=== PATIENT | female | born 1990 | race Caucasian/White ===

== ENCOUNTER 2016-09-04 09:16 | Emergency (ER) | payer MEDICAID ==
[~2016-09-04] VITALS: Ht 157.5 cm; Wt 90.8 kg
[~2016-09-04 09:16] MED LIST: ASPI-860 PO; NO ROUTINE MEDS
[2016-09-04 09:21] VITALS: TEMP 98.2; Ht 157.5 cm; Wt 90.8 kg
--- OUTSIDE RECORDS SUMMARY | 2016-09-04 09:21 | XMS REPORT | Continuity of Care Document ---
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 today - Offered ulipristal Rx (more effective in obese, coverage out to 5 days from last unprotected intercourse). Pt declines. Prefers to "wait and see what happens". - Counseled on need to abtain frtom intercourse or use barrier protection with intercourse for 2 weeks prior to Nexplanon placement RTC 2 weeks for UCG, possible Nexplanon placement d/w Dr. Yoli Baker MD PGY-4 _x_ I reviewed the records with the resident and agree and directed the plan of care at the time of the visit (Levels 1 to 3). __ I certify that I personally performed or was present and supervised all procedures. History: Examination: Assessment/Plan: Here for nexplanon placement, but timing not appropriate; offered options- will return after menses 10/17/2015 [facility] Patient Viewable Results Eos 0.10 10^3/cmm 0.00 - 0.70 [facility] Patient Viewable Results Creatinine, Urine Random 37.7 mg/dL 07/19/2013 [facility] Patient Viewable Results UA Ketones Negative (07/19/2013 03:00:00) Negative 07/19/2013 [facility] Patient Viewable Results ABORH TYPE A POS 07/19/2013 [facility] Patient Viewable Results Glucose, 1 Hr 105 mg/dL 2012 NA 1Interpretive Data: Interpretation available on consultation with clinical pathologist. [facility] Vital Signs Vital Sign Value Date Comments Source Temperature Oral 98.3 [degF] 10/31/2015 [facility] Heart Rate 55 bpm 10/31/2015 [facility] Cuff Size Adult Large Cuff
</br>(10/31/15 1:14 PM) 10/31/2015 [facility] Systolic BP 106 mmHg 2015 [facility] Diastolic BP 59 mmHg 2015 [facility] BP Site Right Arm
</br>(10/31/15 1:14 PM) 10/31/2015 [facility] BP Site Right Arm
</br>(10/17/15 2:50 PM) 10/17/2015 [facility] Cuff Size Adult Regular Cuff
</br>(10/17/15 2:50 PM ) 10/17/2015 [facility] Heart Rate 60 bpm 10/17/2015 [facility] Temperature Oral 98.7 [degF] 10/17/2015 [facility] Systolic BP 123 mmHg 2015 [facility] Diastolic BP 80 mmHg 2015 [facility] Resp. Rate 18 BRMIN 2015 [facility] Oxygen Therapy Room air
</br>(07/21/2013 08:03:00 ) <sup> </sup> 07/21/2013 [facility] Diastolic BP 71 mmHg 2013 [facility] BP Site Left Arm
</br>(07/21/2013 08:03:00) <sup> </sup> 07/21/2013 [facility] Cuff Size Adult Long Cuff
</br>(07/21/2013 08:03: 00) <sup> </sup> 07/21/2013 [facility] Heart Rate 92 bpm 07/21/2013 [facility] Temperature Oral 98.3 [degF] 07/21/2013 [facility] Oxygen Saturation 97 % 2013 [facility] Resp. Rate 18 BRMIN 2013 [facility] Systolic BP 107 mmHg 2013 [facility] Oxygen Therapy Room air
</br>(07/21/2013 08:00:00 ) <sup> </sup> 07/21/2013 [facility] Mean Arterial Pressure 80 mmHg 07/21/2013 [facility] BP Site Right Arm
</br>(07/21/2013 03:15:00) <sup > </sup> 07/21/2013 [facility] Diastolic BP 66 mmHg 2013 [facility] Heart Rate 107 bpm 2013 [facility] Resp. Rate 18 BRMIN 2013 [facility] Systolic BP 107 mmHg 2013 [facility] Temperature Oral 97.8 [degF] 07/21/2013 [facility] Diastolic BP 80 mmHg 2013 [facility] BP Site Right Arm
</br>(07/21/2013 00:00:00) <sup > </sup> 07/21/2013 [facility] Mean Arterial Pressure 93 mmHg 07/21/2013 [facility] Temperature Oral 98.1 [degF] 07/21/2013 [facility] Heart Rate 105 bpm 2013 [facility] Resp. Rate 18 BRMIN 2013 [facility] Systolic BP 119 mmHg 2013 [facility] Mean Arterial Pressure 79 mmHg 07/21/2013 [facility] Oxygen Saturation 96 % 2013 [facility] Oxygen Saturation 96 % 2013 [facility] Oxygen Therapy Room air
</br>(07/20/2013 15:30:00 ) <sup> </sup> 07/20/2013 [facility] Cuff Size Adult Long Cuff
</br>(07/19/2013 12:05: 00) <sup> </sup> 07/19/2013 [facility] Cuff Size Adult Long Cuff
</br>(07/19/2013 08:04: 00) <sup> </sup> 07/19/2013 [facility] Systolic BP 118 mmHg 2013 [facility] Diastolic BP 75 mmHg 2013 [facility] Resp. Rate 18 BRMIN 2013 [facility] BP Site Right Arm
</br>(07/10/2013 12:48:00) <sup > </sup> 07/10/2013 [facility] Cuff Size Adult Large Cuff
</br>(07/10/2013 12:48: 00) <sup> </sup> 07/10/2013 [facility] Heart Rate 92 bpm 07/10/2013 [facility] Diastolic BP 71 mmHg 2013 [facility] Heart Rate 88 bpm 07/03/2013 [facility] Resp. Rate 18 BRMIN 2013 [facility] Systolic BP 117 mmHg 2013 [facility] Heart Rate 88 bpm 07/03/2013 [facility] Resp. Rate 18 BRMIN 2013 [facility] Systolic BP 107 mmHg 2013 [facility] Cuff Size Adult Large Cuff
</br>(07/03/2013 13:19: 00) <sup> </sup> 07/03/2013 [facility] Diastolic BP 71 mmHg 2013 [facility] BP Site Right Arm
</br>(07/03/2013 13:19:00) <sup > </sup> 07/03/2013 [facility] Resp. Rate 20 BRMIN 2013 [facility] Systolic BP 103 mmHg 2013 [facility] Heart Rate 83 bpm 06/26/2013 [facility] Diastolic BP 68 mmHg 2013 [facility] Systolic BP 103 mmHg 2013 [facility] Diastolic BP 68 mmHg 2013 [facility] Cuff Size Adult Regular Cuff
</br>(06/26/2013 14: 11:00) <sup> </sup> 06/26/2013 [facility] BP Site Right Arm
</br>(06/26/2013 14:11:00) <sup > </sup> 06/26/2013 [facility] Resp. Rate 20 BRMIN 2013 [facility] Heart Rate 83 bpm 06/26/2013 [facility] Diastolic BP 78 mmHg 2013 [facility] Resp. Rate 20 BRMIN 2013 [facility] Heart Rate 86 bpm 06/12/2013 [facility] Systolic BP 120 mmHg 2013 [facility] Diastolic BP 78 mmHg 2013 [facility] Cuff Size Adult Large Cuff
</br>(06/12/2013 16:04: 00) <sup> </sup> 06/12/2013 [facility] BP Site Right Arm
</br>(06/12/2013 16:04:00) <sup > </sup> 06/12/2013 [facility] Systolic BP 120 mmHg 2013 [facility] Resp. Rate 20 BRMIN 2013 [facility] Heart Rate 86 bpm 06/12/2013 [facility] Cuff Size Adult Regular Cuff
</br>(05/25/2013 14: 39:00) <sup> </sup> 05/25/2013 [facility] BP Site Left Arm
</br>(05/25/2013 14:39:00) <sup> </sup> 05/25/2013 [facility] Diastolic BP 66 mmHg 2013 [facility] Systolic BP 113 mmHg 2013 [facility] Resp. Rate 16 BRMIN 2013 [facility] Heart Rate 72 bpm 05/25/2013 [facility] Temperature Oral 98.2 [degF] 05/25/2013 [facility] Cuff Size Adult Large Cuff
</br>(04/28/2013 09:30: 00) <sup> </sup> 04/28/2013 [facility] BP Site Right Arm
</br>(04/28/2013 09:30:00) <sup > </sup> 04/28/2013 [facility] Systolic BP 119 mmHg 2012 [facility] Diastolic BP 83 mmHg 2012 [facility] Heart Rate 83 bpm 04/28/2013 [facility] Resp. Rate 18 BRMIN 2012 [facility] Diastolic BP 73 mmHg 2012 [facility] BP Site Right Arm
</br>(03/17/2013 11:13:00) <sup > </sup> 03/17/2013 [facility] Cuff Size Adult Large Cuff
</br>(03/17/2013 11:13: 00) <sup> </sup> 03/17/2013 [facility] Systolic BP 119 mmHg 2012 [facility] Heart Rate 87 bpm 03/17/2013 [facility] Resp. Rate 18 BRMIN 2012 [facility] Encounters Location Location Details Encounter Type Encounter Number Reason For Visit Attending Provider ADM Date DC Date Status Source [facility] [id number] Alma Kent 201510/18/2015 [facility] [id number] Kelly Bean 10/31/2015 11/01/2015 [facility] [id number] Grover Sim 12/17/2015 12/18/2015 [facility] [id number] Grover Sim 01/28/2016 01/29/2016 [facility] [id number] Grover Sim 02/18/2016 02/19/2016 [facility] Procedures Procedure Code Date Perfomer Comments Source No data available for this section [facility] Plan of Care Social History Assessment and Plan Date Assessment and Plan Source Author:Grover Sim Title:Psychiatric Note * Date:01/28/16 Impression and Plan Course: Worsening. Person Centered Clinical Analysis: Personal Strengths: Physically healthy, Able to verbalize needs. Current Community Agencies/Resources: Food stamps. Course: Worsening. [facility] Author:Avril Perry Title:Primary Products Inspectors Clinic Note Date:10/31/15 Patient: SAMMI VAUGHAN Age: 25 years Sex: Female : 89 Associated Diagnoses: None Author: Avril Perry eyelet maker Clinic Note History of Present Illness Pt is a 25yo presents for Nexplanon placement. She was previously seen in clinic on 10/16 desiring placement however had been recently sexually active without contraception. Since that time she has not had unprotected intercourse and continues to desire Nexplanon placement. Review of Systems Constitutional: No fever, No chills. Respiratory: No shortness of air. Cardiovascular: No chest pain. Gastrointestinal: No nausea, No vomiting, No abdominal pain. Genitourinary: No dysuria. Gynecologic: As per HPI. Musculoskeletal: No back pain. Integumentary: No rash. Neurologic: Alert and oriented X4. Psychiatric: No anxiety, No depression. Health Status Allergies: Allergic Reactions (Selected) No Known Allergies Current medications: (Selected) Prescriptions Prescribed Albuterol HFA 90 mcg/inh inhalation aerosol: 2 puff, Inhalation, Q4H, 1 INH Zoloft 50 mg oral tablet: 50 mg, 1 tab, PO, Daily, 30 tab Histories PMH: Obesity (BMI 37), bipolar/depression, PTSD POBHx: . c/s x1 2013 for intolerance to labor, weight 2915g PGynHx: Menstrual hx as per HPI. Pap 01/2013 NSIL. Denies h/o STIs. No contraception. PSxHx: c/s x1 SHx: FHx: Noncontributory Physical Examination VS/Measurements Vitals Signs (last 24 hrs) Last Charted Minimum Maximum Temp 98.3 (OCT 30 13:14) 98.3 (OCT 30 13:14) 98.3 (OCT 30 13:14) SBP 106 (OCT 30 13:14) 106 (OCT 30 13:14) 106 (OCT 30 13:14) DBP L 59 (OCT 30 13:14) L 59 (OCT 30 13:14) L 59 (OCT 30 13:14) Cognition and Speech: Oriented. Psychiatric: Cooperative, Appropriate mood & affect. Respiratory: Lungs are clear to auscultation. Cardiovascular: Normal rate, Regular rhythm. Gastrointestinal: Soft, Non-tender, Non-distended. Genitourinary: Deferred. Integumentary: Warm, Dry. Neurologic: Alert, Oriented. Urine HCG: negative Brief Description of Procedure: Risks/benefits/alternatives discussed including but not limited to pain, bruising, scar, expulsion of device, abnormal bleeding, and . Pt verbalized understanding and agreed to proceed.Consents signed. The patient was placed in the supine position with non-dominant arm flexed at the elbow andexternally rotated. Time out was performed. The insertion site was marked ~ 4cm above the elbow crease at the inner side of the upper arm, between the triceps and biceps muscle. The insertion site was then prepped with alcohol and ~ 1ml of lidocaine was inserted along the intended site of insertion. The presence of the Nexplanon was then verified inside the trochar with the needle cap in place and the applicator then tapped at the base until the implant disappeared back into the trochar. The need cap was then removed and the trochar inserted at a 20 degree angle to clements the skin the lowered to the horizontal plane and inserted to its full length while tenting up the skin. The applicator seal was then broken and rotated 90 degrees and the applicator and trochar removed. The insertion site was then palpated and the Nexplanon felt in place. Patient also was instructed to palpate the Nexplanon. The patient tolerated the procedure well. Dr. Kelly Bean MD was present and available for the entire procedure. Lot #: [id number] A/P: 25yo desiring Nexplanon 1. Nexplanon Placement - HCG negative as above - R/B/A of Nexplanon placement were reviewed with patient as above and Nexplanon placed in L upper inner arm without complication. - Patient instructed to keep pressure dressing on for at least 24hrs after which she may shower. May remove steri-strips in 2-3 days. - Patient instructed to take IBP for any pain or inflammation. RTC in 01/2016 for WWE or sooner if any increased pain, bleeding, erythema, swelling or discharge at insertion site. Discussed with MD Avril Ferrer DO, PGY1 __xx I certify that I personally performed or was present and supervised all procedures. Addendum by Kelly Bean on November 04, 2015 16:22 [facility] Author:Natasha Baker Title:Product Safety Coordinator Clinic Note * Date:10/17/15 Impression and Plan 25yo desiring Nexplanon - Nexplanon not placed today as pt has recently been having frequent unprotected intercourse. Can not prove she is not even with neg UCG today - Offered ulipristal Rx (more effective in obese, coverage out to 5 days from last unprotected intercourse). Pt declines. Prefers to "wait and see what happens". - Counseled on need to abtain frtom intercourse or use barrier protection with intercourse for 2 weeks prior to Nexplanon placement RTC 2 weeks for UCG, possible Nexplanon placement d/w Dr. Yoli Baker MD PGY-4 [facility] Author:Karen Castaneda Title:Ambulatory Patient Education Date:10/17/15 [facility]. [address] [address] Visit Information/Informacion de Visita Name/Nombre: SAMMI VAUGHAN Date of /Fecha de Nacimiento: 1990 12:00 AM Visit Date/Fecha de Visita: 10/17/2015 2:22 PM Physicians/Medicos Clinic Provider/Proveedor de Clinica: Resident Provider: Natasha Baker Attending Provider: Alma Kent This is the list of current medications in your medical record. It may include medications from visits to other areas of the hospital and medications you told us were prescribed by other doctors. If you have questions about any medications that were not prescribed from this clinic, please contact the doctor who prescribed them. Your Medications/Nancy Medicamentos Here is a list of your medications/Aqu est urszula lista de nancy medicinas. Medication/Strength Dose Route Frequency Indications/Special Instructions/ Comments ulipristal (ulipristal 30 mg oral tablet) 30 mg By Mouth ONCE acetaminophen-oxycodone (Percocet-5/325 325 mg-5 mg oral tablet) 1 tab By Mouth Every 4 Hours as needed for for pain multivitamin (multivitamin, Multivitamins oral tablet ) 1 tab By Mouth daily ibuprofen (ibuprofen 800 mg oral tablet) 800 mg By Mouth Every 8 hours as needed for as needed for pain ferrous sulfate (ferrous sulfate 325 mg oral tablet) 1 tab By Mouth daily docusate (Colace sodium 100 mg oral capsule) 100 mg By Mouth twice per day as needed for for constipation with plenty of water sertraline (Zoloft 50 mg oral tablet) 50 mg By Mouth daily albuterol (Albuterol HFA 90 mcg/inh inhalation aerosol) 2 puff Inhalation Every 4 Hours If you haven't been contacted for an appointment within two weeks, please call [phone] for [facility] or for [facility]. Additional Patient Information: Height: 5 ft 2 in Weight: 206 lb 13 oz Blood Pressure: 123/80 mmHg Future Orders Placed Today/Ordenes de Doctor Patient Follow-up Information/Informacion de seguimiento del paciente Your Upcoming Appointments/Nancy proximas citas Please bring all home medications to every visit with us at [facility]. Your safety and education around medications is our goal. (Prescription , non prescription and herbal supplements) Date Time Location Appointment Type Provider 10/31/2015 12:50 pm OB Clinic INFORMATION SYSTEMS AUDIT MANAGER Return Perry, Avril SMITH (R) Patient Instructions/Instrucciones para el Paciente All smokers are encouraged to stop smoking. If you would like help, talk to your doctor or call The [place] Tobacco Quitline at 5-062-WXGXNOW (7-206-244- 0659). If you have thoughts about committing suicide or otherwise hurting yourself, please call [phone] or call Crisis Line at . Take Charge of Your Health with [employer] Sign up today for [employer] for access to your health records 14/12. [employer] allows you to: Request an appointment Check your lab results Communicate with your providers and care team See provider notes from your visit View immunization records View current medication Sign up Today! Ask your healthcare provider or a [facility] associate for help, or email [email or web address]. [email or web address] Family History Value Date Source Advance Directives Order Name Results Value Date Source
--- OUTSIDE RECORDS SUMMARY | 2016-09-04 09:26 | XMS REPORT | Continuity of Care Document ---
Author Author [facility] Organization [facility] Address Unknown Phone Unavailable Support Name Relationship Address Phone SEPTEMBER, SANJU Lott DO Caregiver [address] [place] [address] Unavailable NOAH REYNOSO Next Of Kin Unknown [phone] Insurance Providers Guarantor Raquel Killian Address [address] [place] [address] Email DENIED/NO TO PORTAL Payer Medicaid [place] Policy Number [id number] Subscriber's Name Raquel Killian Relationship 18 Self Effective Date 16 Expiration Date 16 Advance Directives Directive Response Recorded Date/Time Advanced Directives Type None 05/06/16 1:06pm Chief Complaint and Reason for Visit Chief Complaint Skin Rash/Abscess Reason for Visit Aphthous ulcer Problems Active Problems Medical Problem Onset Date Status Aphthous ulcer Unknown Acute Hand contusion Unknown Acute Hand contusion Unknown Acute Migraine Unknown Acute Medications Current Home Medications Medication Dose Units Route Directions Days Qty Instructions Start Date Aspirin/Acetaminophen/Caffeine (Headache Relief Caplet) 1 Each Tablet 2 Tab Oral Every 4 Hours as needed for Pain 05/06/16 No Routine Meds 06/05/15 Past Home Medications Medication Directions Ordered Status [place] , 10/19/10 Discontinued Quetiapine Fumarate (Seroquel) 100 Mg Tablet, 100 Mg Oral Bedtime 01/29/11 Discontinued Seroquel , 10/19/10 Discontinued Social History Social History Problem Response Recorded Date/Time Onset Date Status Hx Substance Use No 05/06/2016 1:47pm Not Applicable Not Applicable Hx Alcohol Use No 05/06/2016 1:47pm Not Applicable Not Applicable Tobacco Usage smoke 06/05/2015 8:28pm Not Applicable Not Applicable Query Response Start Date Stop Date Smoking Status Current every day smoker Hospital Discharge Instructions No hospital discharge instructions. Plan of Care Discharge Date 05/06/16 1:42pm Disposition 01 DISCHARGED HOME, SELF-CARE Condition at Discharge Stable Instructions/Education Provided DI for Aphthous Ulcers (Canker Sores) Prescriptions See Medication Section Additional Instructions/Education You can try some Orajel solution or Maalox applied to the sore in your mouth to help with pain until they have healed. They may last up to 10 days. I do encourage you to follow up with the health department for STD testing if you have any concerns at all. Care Plan and Goals Physician Care Plan Problem:Ulcerations in mouth Goal: Follow up with primary care provider Instructions: Take medications and follow care plan as discussed/written Functional Status No functional status results. Allergies, Adverse Reactions, Alerts No known allergies. Immunizations Query Response on File Recorded Date/Time Hx Tetanus, Diptheria, Pertussis Y 04/24/2009 01/22/14 2:00pm Hx Tetanus, Diptheria, Pertussis Y 04/24/2009 01/22/14 2:00pm Vital Signs Acute Vital Signs Vital Response Date/Time Temperature (Fahrenheit) 98.3 deg F (96.8 - 99.1) 05/06/2016 1:42pm Temperature (Calculated Celsius) 36.58040 degrees C (36.0 - 37.3) 05/06/2016 1:42pm Pulse Rate (adult) 76 bpm (60 - 100) 05/06/2016 1:42pm Respiratory Rate 16 breaths/min (10 - 20) 05/06/2016 1:42pm O2 Sat by Pulse Oximetry 97 % (90 - 100) 05/06/2016 1:42pm Blood Pressure 128/75 mm Hg 05/06/2016 1:42pm Height (Feet) 5 feet 05/06/2016 1:06pm Height (Inches) 2.50 inches 05/06/2016 1:06pm Weight (Kilograms) 91.400 kg 05/06/2016 1:06pm Body Mass Index (BMI) 36.0 05/06/2016 1:06pm Results No known relevant diagnostic tests, laboratory data and/or discharge summary. Procedures No known history of procedures. Encounters Encounter Location Arrival/Admit Date Discharge/Depart Date Attending Provider Departed Emergency Room [facility] 05/06/16 12:58pm 05/06/16 1: 42pm SANJU ESTRADA DO Recent Diagnosis
--- OUTSIDE RECORDS SUMMARY | 2016-09-04 09:26 | XMS REPORT | Continuity of Care Document ---
Author Author [facility] Organization [facility] Address Unknown Phone Unavailable Care Team Providers Care Cube Cutter Name Role Phone DYLON SOUSA MD Primary Care Physician [phone] Insurance Providers Payer Name Policy Number Subscriber Name Relationship [facility] Community Plan [id number] Raquel Killian 19 Self Problems Medical Problems Problem Onset Date Status Hand contusion Unknown Active Medications Medication Dose Route Sig Days/Qty Instructions Order Date Discontinued Date Status [[place]] 10/19/10 01/29/11 Discontinued [Seroquel] 10/19/10 01/29/11 Discontinued Quetiapine Fumarate 100 Mg PO BEDTIME 01/29/11 10/07/11 Discontinued Naproxen 500 Mg PO TWICE A DAY 20 Qty 01/22/14 Active Lurasidone HCl 40 Mg PO DAILY 01/22/14 Active Cyproheptadine HCl 4 Mg PO BEDTIME 01/22/14 Active Social History Social History Problem Response Recorded Date/Time Smoking Status Current every day smoker 01/22/2014 2:00pm Hospital Discharge Instructions No hospital discharge instructions. Plan of Care No plan of care. Functional Status Query Response Date Recorded Physical Hygiene Self January 22, 2014 2:00pm Disabilities None January 22, 2014 2:00pm Devices Used None January 22, 2014 2:00pm Dressing Self January 22, 2014 2:00pm Ambulation Self January 22, 2014 2:00pm Diet Self January 22, 2014 2:00pm Mental Status Alert January 22, 2014 2:00pm Disabilities None January 22, 2014 2:00pm Devices Used None January 22, 2014 2:00pm Physical Hygiene Self January 22, 2014 2:00pm Dressing Self January 22, 2014 2:00pm Ambulation Self January 22, 2014 2:00pm Diet Self January 22, 2014 2:00pm Allergies, Adverse Reactions, Alerts Allergen Type Severity Reaction Status Last Updated No Known Allergies Active 01/02/12 Immunizations Name Given Type Hx Tetanus, Diptheria, Pertussis Y 04/24/2009 Historical Hx Tetanus, Diptheria, Pertussis Y 04/24/2009 Historical Vital Signs Acute Vital Signs Vital Response Date/Time Temperature (Fahrenheit) 96.5 deg F (96.8 - 99.1) Temperature (Calculated Celsius) 35.35909 degrees C (36.0 - 37.3) Pulse Rate (adult) 100 bpm (60 - 100) Respiratory Rate 18 breaths/min (10 - 20) O2 Sat by Pulse Oximetry 96 % (90 - 100) Blood Pressure 121/73 mm Hg Height 5 ft 2 in Weight 170 lb Body Mass Index 31.0 kg/m^2 Results Test Source Date Result Interp. Ref. Range Comments Alanine Aminotransferase (ALT/SGPT) October 19, 2010 7:02pm 10 U/L N 9-52 Albumin October 19, 2010 7:02pm 4.1 G/DL N 3.5-5.0 Albumin/Globulin Ratio October 19, 2010 7:02pm 1.4 RATIO N 1.1-2.2 Alkaline Phosphatase October 19, 2010 7:02pm 84 U/L N 38-126 Amylase Level October 19, 2010 7:02pm 78 U/L N 30-110 Anion Gap November 17, 2011 8:23pm 12 MEQ/L N 5-15 Aspartate Amino Transf (AST/SGOT) October 19, 2010 7:02pm 21 U/L N 14-36 BUN/Creatinine Ratio November 17, 2011 8:23pm 13 RATIO N 6-26 Basophils # (Auto) November 17, 2011 8:23pm 0.0 T/MM3 N 0-0.2 Basophils (%) (Auto) November 17, 2011 8:23pm 0.2 % N 0-2 Blood Urea Nitrogen November 17, 2011 8:23pm 9.0 MG/DL N 7-17 Calcium Level November 17, 2011 8:23pm 9.6 MG/DL N 8.4-10.2 Calculated Osmolality November 17, 2011 8:23pm 274 MOSM/KG N 261-280 Carbon Dioxide Level November 17, 2011 8:23pm 23 MEQ/L N 22-30 Chloride Level November 17, 2011 8:23pm 108 MEQ/L H 98-107 Conjugated Bilirubin October 19, 2010 7:02pm 0.00 MG/DL N 0.00-0.30 Creatinine November 17, 2011 8:23pm 0.7 MG/DL N 0.7-1.2 Eosinophils # (Auto) November 17, 2011 8:23pm 0.1 T/MM3 N 0-0.5 Eosinophils (%) (Auto) November 17, 2011 8:23pm 0.9 % N 0-4 Globulin October 19, 2010 7:02pm 2.9 G/DL N 2.4-3.6 Glucose Level November 17, 2011 8:23pm 105 MG/DL N 65-110 Hematocrit November 17, 2011 8:23pm 41.8 % N 36-46 Hemoglobin November 17, 2011 8:23pm 14.5 GM/DL N 12-16 Human Chorionic Gonadotropin, Qual November 17, 2011 8:23pm Negative - Lipase October 19, 2010 7:02pm 130 U/L N 23-300 [place] Level October 19, 2010 7:02pm < 0.2 MMOL/L L 0.6-1.2 Lymphocytes # (Auto) November 17, 2011 8:23pm 2.9 T/MM3 N 1-4.8 Lymphocytes (%) (Auto) November 17, 2011 8:23pm 35.3 % N 23-45 Mean Corpuscular Hemoglobin November 17, 2011 8:23pm 29.7 UUG N 26-34 Mean Corpuscular Hemoglobin Concent November 17, 2011 8:23pm 34.7 GM/DL N 31 -37 Mean Corpuscular Volume November 17, 2011 8:23pm 85.5 UM3 N 80-100 Mean Platelet Volume November 17, 2011 8:23pm 10.4 UM3 N 9.4-12.4 Monocytes # (Auto) November 17, 2011 8:23pm 0.4 T/MM3 N 0-0.8 Monocytes (%) (Auto) November 17, 2011 8:23pm 5.2 % N 0-9.0 Neutrophils # (Auto) November 17, 2011 8:23pm 4.8 T/MM3 N 1.8-7.7 Neutrophils (%) (Auto) November 17, 2011 8:23pm 58.3 % N 33-66 Platelet Count November 17, 2011 8:23pm 263 T/MM3 N 130-400 Potassium Level November 17, 2011 8:23pm 3.4 MEQ/L L 3.6-5 RDW Standard Deviation November 17, 2011 8:23pm 39.5 FL N 36.9-50.2 Red Blood Count November 17, 2011 8:23pm 4.89 M/MM3 N 4.00-5.20 Sodium Level November 17, 2011 8:23pm 143 MEQ/L N 134-144 Total Bilirubin October 19, 2010 7:02pm 0.30 MG/DL N 0.20-1.30 Total Protein October 19, 2010 7:02pm 7.0 G/DL N 6.3-8.2 Unconjugated Bilirubin October 19, 2010 7:02pm 0.10 MG/DL N 0.00-1.10 Urine Bacteria November 17, 2011 8:30pm 1+ H - Has specimen been collected/ obtained? Y Urine Bilirubin November 17, 2011 8:30pm Negative - Has specimen been collected/obtained? Y Urine Blood November 17, 2011 8:30pm Negative - Has specimen been collected/obtained? Y Urine Calcium Oxalate Crystals November 17, 2011 8:30pm Many - Has specimen been collected/obtained? Y Urine Collection Type November 17, 2011 8:30pm Voided - Has specimen been collected/obtained? Y Urine Color November 17, 2011 8:30pm Yellow - Has specimen been collected /obtained? Y Urine Culture Indicated November 17, 2011 8:30pm Cult not indicated - Has specimen been collected/obtained? Y Urine Glucose (UA) November 17, 2011 8:30pm Negative - Has specimen been collected/obtained? Y Urine Ketones November 17, 2011 8:30pm Negative - Has specimen been collected/obtained? Y Urine Leukocyte Esterase November 17, 2011 8:30pm Trace H - Has specimen been collected/obtained? Y Urine Mucus November 17, 2011 8:30pm Present - Has specimen been collected/obtained? Y Urine Nitrite November 17, 2011 8:30pm Negative - Has specimen been collected/obtained? Y Urine Test January 02, 2012 1:35pm Negative - Has specimen been collected/obtained? Y Urine Protein November 17, 2011 8:30pm Trace H - Has specimen been collected/obtained? Y Urine RBC November 17, 2011 8:30pm None seen /HPF - Has specimen been collected/obtained? Y Urine Specific [place] November 17, 2011 8:30pm 1.025 - Has specimen been collected/obtained? Y Urine Squamous Epithelial Cells November 17, 2011 8:30pm Many - Has specimen been collected/obtained? Y Urine Turbidity November 17, 2011 8:30pm Slt cldy - Has specimen been collected/obtained? Y Urine Urobilinogen November 17, 2011 8:30pm 1 EU/DL - Has specimen been collected/obtained? Y Urine WBC November 17, 2011 8:30pm 1-3 /HPF - Has specimen been collected /obtained? Y Urine pH November 17, 2011 8:30pm 6.0 - Has specimen been collected/ obtained? Y White Blood Count November 17, 2011 8:23pm 8.1 T/MM3 N 4.5-11.0 EKG February 27, 2009 9:25pm Complete - Glomerular Filtration Rate Calc November 17, 2011 8:23pm 107 - Immature Granulocyte # (Auto) November 17, 2011 8:23pm 0.01 T/MM3 N 0.00- 0.03 Immature Granulocyte % (Auto) November 17, 2011 8:23pm 0.1 % N 0.0-0.5 Urine Microscopic Not Indicated October 19, 2010 7:02pm Not indicated - Has specimen been collected/obtained? Y Gram Stain Breast-Left October 07, 2011 8:10pm Procedures No known history of procedures. Encounters Encounter Location Date/Time Departed Emergency [facility] 01/22/14 12:33pm Recent Diagnosis
--- OUTSIDE RECORDS SUMMARY | 2016-09-04 09:26 | XMS REPORT ---
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
--- OUTSIDE RECORDS SUMMARY | 2016-09-04 09:40 | XMS REPORT | Continuity of Care Document ---
Author Author Krysta Chaparro Address Unknown Phone Unavailable Care Team Providers Care Powerbuilder Name Role Phone [employer] Unavailable Unavailable Problems Problem Status Onset Date Classification Date Reported Comments Source Abdominal pain (finding) Active 02/09/2013 Problem 2015 [facility] Abdominal pain, unspecified site Active 02/09/2013 Problem 08/25/2013 [facility] Abdominal pain NOS Active Problem 06/13/2013 [facility] Patient currently (finding) Resolved 12/07/2012 Problem 02/23/2016 [facility] Active 12/07/2012 Problem 06/13/2013 [facility] Headache (finding) Active Problem 02/23/2016 [facility] Mood disorder (disorder) Active Problem 02/23/2016 [facility] Obesity (disorder) Active Problem 02/23/2016 Added based on documentation of BMI=36.6. [facility] Overweight (finding) Active Problem 02/23/2016 Added based on documentation of BMI=29.8. [facility] Final: Encounter for surveillance of other contraceptives 11/05/2015 [facility] Final: Nicotine dependence, cigarettes, uncomplicated 11/05/2015 [facility] Final: Obesity, unspecified 11/05/2015 [facility] Final: Body mass index (BMI) 37.0-37.9, adult 2015 [facility] Final: Encounter for initial prescription of other contraceptives 10/22/2015 [facility] Headache Active Problem 08/25/2013 [facility] Obesity (disorder) Active Problem 08/25/2013 1Added based on documentation of BMI=36.6. [facility] Obesity, unspecified Active Problem 07/28/2013 1Added based on documentation of BMI=36.6. [facility] Obesity NOS Active Problem 06/13/2013 1Added based on documentation of BMI=36.6. [facility] Medications Medication Details Route Status Patient Instructions Ordering Provider Order Date Source Albuterol HFA 90 mcg/inh inhalation aerosol </br>2 puff, Inhalation, Q4H, # 1 INH, 0 Refill(s) Active [facility] amitriptyline 25 mg oral tablet </br>=25 mg, 1 tab, PO, QHS, # 14 tab, 0 Refill(s) Inactive [facility] Acetaminophen 325 MG / Oxycodone Hydrochloride 5 MG Oral Tablet [Percocet 5/325 ] </br>1 tab, PO, Q4H, PRN for pain, # 40 tab, 0 Refill(s) Active [facility] multivitamin, Multivitamins oral tablet </br>1 tab, PO, Daily, # 30 tab, 11 Refill(s) Active [facility] ibuprofen 800 mg oral tablet </br>=800 mg, 1 tab, PO, Q8H, PRN as needed for pain, # 40 tab, 0 Refill(s) Active [facility] ferrous sulfate 325 mg oral tablet </br>1 tab, PO, Daily, # 30 tab, 11 Refill(s) Active [facility] Docusate Sodium 100 MG Oral Capsule [Colace] </br>=100 mg, 1 cap, PO, BID, PRN for constipation, with plenty of water, # 60 cap, 6 Refill(s) [facility] haloperidol 2 mg oral tablet </br>=2 mg, 1 tab, PO, QHS, # 30 tab, 2 Refill(s) Inactive [facility] topiramate 50 MG Oral Tablet [Topamax] </br>=50 mg, 1 tab, PO, BID, # 60 tab, 2 Refill(s) Inactive [facility] Sertraline 50 MG Oral Tablet [Zoloft] </br>=50 mg, 1 tab, PO, Daily, # 30 tab, 2 Refill(s), Pharmacy [facility] [facility] TDaP 0.5 mL, injection, VACCONCE, IM, Start date 04/28 10:57:00 Inactive [facility] influenza virus vaccine quadrivalent 0.5 mL, injection , VACCONCE, IM, Start date 04/28/13 10:46:00 Inactive [facility] Unisom 25 mg oral tablet 25 mg 1 tab, PO, QHS, PRN for sleep, # 32 tab, 0 Refill(s) PO Active [facility] Duet DHA Multivitamins oral kit 1 tab, PO, Daily, # 30 tab, 3 Refill(s), Pharmacy: [facility] [address] [facility] Vistaril pamoate 50 mg oral capsule =50 mg, 1 cap, PO , QHS, PRN Insomnia, Or up to four times per day for anxiety, may cause drowsiness, # 30 cap, 1 Refill(s), Pharmacy [facility]
</br>Or up to four times per day for anxiety, may cause drowsiness PO [facility] Zoloft 50 mg oral tablet =50 mg, 1 tab, PO, Daily, # 30 tab, 2 Refill(s), Pharmacy [facility] [address] [facility] Esgic 325 mg-50 mg-40 mg oral capsule 1 cap, PO, Q4H, PRN for headache, # 60 cap, 0 Refill(s) PO [facility] Percocet-5/325 325 mg-5 mg oral tablet 1 tab, PO, Q4H , PRN for pain, # 40 tab, 0 Refill(s) Active [facility] Colace sodium 100 mg oral capsule =100 mg, 1 cap, PO, BID, PRN for constipation, with plenty of water, # 60 cap, 6 Refill(s)
</br> with plenty of water [facility] Allergies, Adverse Reactions, Alerts Immunizations Immunization Date Given Site Status Last Updated Comments Source influenza virus vaccine 04/28/2013 Right Deltoid Influenza [facility] Influenza 04/28/2013 completed [facility] Tdap 04/28/2013 Right Deltoid Tdap [facility] Results Order Name Results Value Reference Range [...] / Confirmed Mood disorder / SNOMED CT 20761052 / Confirmed Obesity NOS / ICD-9-CM 278.00 / Confirmed Added based on documentation of BMI=36.6. Overweight / ICD-9-CM 278.02 / Confirmed Added based on documentation of BMI=29.8. Resolved: / SNOMED CT 716286226 Canceled: Alteration in nutrition / SNOMED CT 523324298 Problem added automatically by system based on [...] Dr. Billings. Titus Dolan M.D., PGY4 02/18/2016 [facility] Psychiatric OP Progress Note Psychiatric OP [...] assessment. the patient was seen at the [facility], between 1415 and 1500. on jan Chief [...] same time it seems very cledra that [facility] decliens most attempts to help her. [...] / Confirmed Mood disorder / SNOMED CT 18929359 / Confirmed Obesity NOS / ICD-9-CM 278.00 [...] defined date range Review / Management diagnosis L[place] i. Disruptive mood dysregulation disorder dissociative disorder [...] session which will take place tomorrow. 01/28/2016 [facility] Point Of Care NIST Timer Used For POC HCG Yes (10/31/15 1:45 PM) 2015 [facility] SWATCH PASTER Clinic Note SWATCH PASTER Clinic Note Patient: SAMMI VAUGHAN Age: 25 years Sex: Female : 89 Associated Diagnoses: None Author: Avril Perry border measurer and cutter Clinic Note History of Present Illness Pt [...] available for the entire procedure. Lot #: [id number] A/P: 25yo desiring Nexplanon 1. Nexplanon Placement [...] was present and supervised all procedures. 10/31/2015 [facility] Point Of Care NIST Timer Used For POC HCG Yes (10/17/15 3:02 PM) 2015 [facility] SWATCH PASTER Clinic Note SWATCH PASTER Clinic Note Patient: SAMMI VAUGHAN Age: 25 [...] offered options- will return after menses 10/17/2015 [facility] Patient Viewable Results Eos 0.10 10^3/cmm 0.00 - 0.70 [facility] Patient Viewable Results Creatinine, Urine Random 37.7 mg/dL 07/19/2013 [facility] Patient Viewable Results UA Ketones Negative (07/19/2013 03:00:00) Negative 07/19/2013 [facility] Patient Viewable Results ABORH TYPE A POS 07/19/2013 [facility] Patient Viewable Results Glucose, 1 Hr 105 mg/dL 2012 NA 1Interpretive Data: Interpretation available on consultation with clinical pathologist. [facility] Vital Signs Vital Sign Value Date Comments Source Temperature Oral 98.3 [degF] 10/31/2015 [facility] Heart Rate 55 bpm 10/31/2015 [facility] Cuff Size Adult Large Cuff
</br>(10/31/15 1:14 PM) 10/31/2015 [facility] Systolic BP 106 mmHg 2015 [facility] Diastolic BP 59 mmHg 2015 [facility] BP Site Right Arm
</br>(10/31/15 1:14 PM) 10/31/2015 [facility] BP Site Right Arm
</br>(10/17/15 2:50 PM) 10/17/2015 [facility] Cuff Size Adult Regular Cuff
</br>(10/17/15 2:50 PM ) 10/17/2015 [facility] Heart Rate 60 bpm 10/17/2015 [facility] Temperature Oral 98.7 [degF] 10/17/2015 [facility] Systolic BP 123 mmHg 2015 [facility] Diastolic BP 80 mmHg 2015 [facility] Resp. Rate 18 BRMIN 2015 [facility] Oxygen Therapy Room air
</br>(07/21/2013 08:03:00 ) <sup> </sup> 07/21/2013 [facility] Diastolic BP 71 mmHg 2013 [facility] BP Site Left Arm
</br>(07/21/2013 08:03:00) <sup> </sup> 07/21/2013 [facility] Cuff Size Adult Long Cuff
</br>(07/21/2013 08:03: 00) <sup> </sup> 07/21/2013 [facility] Heart Rate 92 bpm 07/21/2013 [facility] Temperature Oral 98.3 [degF] 07/21/2013 [facility] Oxygen Saturation 97 % 2013 [facility] Resp. Rate 18 BRMIN 2013 [facility] Systolic BP 107 mmHg 2013 [facility] Oxygen Therapy Room air
</br>(07/21/2013 08:00:00 ) <sup> </sup> 07/21/2013 [facility] Mean Arterial Pressure 80 mmHg 07/21/2013 [facility] BP Site Right Arm
</br>(07/21/2013 03:15:00) <sup > </sup> 07/21/2013 [facility] Diastolic BP 66 mmHg 2013 [facility] Heart Rate 107 bpm 2013 [facility] Resp. Rate 18 BRMIN 2013 [facility] Systolic BP 107 mmHg 2013 [facility] Temperature Oral 97.8 [degF] 07/21/2013 [facility] Diastolic BP 80 mmHg 2013 [facility] BP Site Right Arm
</br>(07/21/2013 00:00:00) <sup > </sup> 07/21/2013 [facility] Mean Arterial Pressure 93 mmHg 07/21/2013 [facility] Temperature Oral 98.1 [degF] 07/21/2013 [facility] Heart Rate 105 bpm 2013 [facility] Resp. Rate 18 BRMIN 2013 [facility] Systolic BP 119 mmHg 2013 [facility] Mean Arterial Pressure 79 mmHg 07/21/2013 [facility] Oxygen Saturation 96 % 2013 [facility] Oxygen Saturation 96 % 2013 [facility] Oxygen Therapy Room air
</br>(07/20/2013 15:30:00 ) <sup> </sup> 07/20/2013 [facility] Cuff Size Adult Long Cuff
</br>(07/19/2013 12:05: 00) <sup> </sup> 07/19/2013 [facility] Cuff Size Adult Long Cuff
</br>(07/19/2013 08:04: 00) <sup> </sup> 07/19/2013 [facility] Systolic BP 118 mmHg 2013 [facility] Diastolic BP 75 mmHg 2013 [facility] Resp. Rate 18 BRMIN 2013 [facility] BP Site Right Arm
</br>(07/10/2013 12:48:00) <sup > </sup> 07/10/2013 [facility] Cuff Size Adult Large Cuff
</br>(07/10/2013 12:48: 00) <sup> </sup> 07/10/2013 [facility] Heart Rate 92 bpm 07/10/2013 [facility] Diastolic BP 71 mmHg 2013 [facility] Heart Rate 88 bpm 07/03/2013 [facility] Resp. Rate 18 BRMIN 2013 [facility] Systolic BP 117 mmHg 2013 [facility] Heart Rate 88 bpm 07/03/2013 [facility] Resp. Rate 18 BRMIN 2013 [facility] Systolic BP 107 mmHg 2013 [facility] Cuff Size Adult Large Cuff
</br>(07/03/2013 13:19: 00) <sup> </sup> 07/03/2013 [facility] Diastolic BP 71 mmHg 2013 [facility] BP Site Right Arm
</br>(07/03/2013 13:19:00) <sup > </sup> 07/03/2013 [facility] Resp. Rate 20 BRMIN 2013 [facility] Systolic BP 103 mmHg 2013 [facility] Heart Rate 83 bpm 06/26/2013 [facility] Diastolic BP 68 mmHg 2013 [facility] Systolic BP 103 mmHg 2013 [facility] Diastolic BP 68 mmHg 2013 [facility] Cuff Size Adult Regular Cuff
</br>(06/26/2013 14: 11:00) <sup> </sup> 06/26/2013 [facility] BP Site Right Arm
</br>(06/26/2013 14:11:00) <sup > </sup> 06/26/2013 [facility] Resp. Rate 20 BRMIN 2013 [facility] Heart Rate 83 bpm 06/26/2013 [facility] Diastolic BP 78 mmHg 2013 [facility] Resp. Rate 20 BRMIN 2013 [facility] Heart Rate 86 bpm 06/12/2013 [facility] Systolic BP 120 mmHg 2013 [facility] Diastolic BP 78 mmHg 2013 [facility] Cuff Size Adult Large Cuff
</br>(06/12/2013 16:04: 00) <sup> </sup> 06/12/2013 [facility] BP Site Right Arm
</br>(06/12/2013 16:04:00) <sup > </sup> 06/12/2013 [facility] Systolic BP 120 mmHg 2013 [facility] Resp. Rate 20 BRMIN 2013 [facility] Heart Rate 86 bpm 06/12/2013 [facility] Cuff Size Adult Regular Cuff
</br>(05/25/2013 14: 39:00) <sup> </sup> 05/25/2013 [facility] BP Site Left Arm
</br>(05/25/2013 14:39:00) <sup> </sup> 05/25/2013 [facility] Diastolic BP 66 mmHg 2013 [facility] Systolic BP 113 mmHg 2013 [facility] Resp. Rate 16 BRMIN 2013 [facility] Heart Rate 72 bpm 05/25/2013 [facility] Temperature Oral 98.2 [degF] 05/25/2013 [facility] Cuff Size Adult Large Cuff
</br>(04/28/2013 09:30: 00) <sup> </sup> 04/28/2013 [facility] BP Site Right Arm
</br>(04/28/2013 09:30:00) <sup > </sup> 04/28/2013 [facility] Systolic BP 119 mmHg 2012 [facility] Diastolic BP 83 mmHg 2012 [facility] Heart Rate 83 bpm 04/28/2013 [facility] Resp. Rate 18 BRMIN 2012 [facility] Diastolic BP 73 mmHg 2012 [facility] BP Site Right Arm
</br>(03/17/2013 11:13:00) <sup > </sup> 03/17/2013 [facility] Cuff Size Adult Large Cuff
</br>(03/17/2013 11:13: 00) <sup> </sup> 03/17/2013 [facility] Systolic BP 119 mmHg 2012 [facility] Heart Rate 87 bpm 03/17/2013 [facility] Resp. Rate 18 BRMIN 2012 [facility] Encounters Location Location Details Encounter Type Encounter Number Reason For Visit Attending Provider ADM Date DC Date Status Source [facility] [id number] Alma Kent 201510/18/2015 [facility] [id number] Kelly Bean 10/31/2015 11/01/2015 [facility] [id number] Grover Sim 12/17/2015 12/18/2015 [facility] [id number] Grover Sim 01/28/2016 01/29/2016 [facility] [id number] Grover Sim 02/18/2016 02/19/2016 [facility] Procedures Procedure Code Date Perfomer Comments Source No data available for this section [facility] Plan of Care Social History Assessment and Plan Date Assessment and Plan Source Author:Grover Sim Title:Psychiatric Note * Date:01/28/16 Impression and Plan Course: Worsening. Person Centered Clinical Analysis: Personal Strengths: Physically healthy, Able to verbalize needs. Current Community Agencies/Resources: Food stamps. Course: Worsening. [facility] Author:Avril Perry Title:Shear Operator Helper Clinic Note Date:10/31/15 Patient: SAMMI VAUGHAN Age: 25 years Sex: Female : 89 Associated Diagnoses: None Author: Avril Perry border measurer and cutter Clinic Note History of Present Illness Pt [...] available for the entire procedure. Lot #: [id number] A/P: 25yo desiring Nexplanon 1. Nexplanon Placement [...] Kelly Bean on November 04, 2015 16:22 [facility] Author:Natasha Baker Title:Pediatric Hospitalist Clinic Note * Date:10/17/15 Impression and Plan [...] placement d/w Dr. Yoli Baker MD PGY-4 [facility] Author:Karen Castaneda Title:Ambulatory Patient Education Date:10/17/15 [facility]. [address] [address] Visit Information/Informacion de Visita Name/Nombre: SAMMI VAUGHAN [...] an appointment within two weeks, please call for [facility] or for [place]. Additional Patient Information: Height: 5 ft 2 in Weight: 206 lb 13 oz Blood Pressure: 123/80 mmHg Future Orders Placed Today/Ordenes de Doctor Patient Follow-up Information/Informacion de seguimiento del paciente Your Upcoming Appointments/Nancy proximas citas Please bring all home medications to every visit with us at [facility]. Your safety and education around medications is our goal. (Prescription , non prescription and herbal supplements) Date Time Location Appointment Type Provider 10/31/2015 12:50 pm OB Clinic BAND STRAIGHTENER Return Perry, Avril SMITH (R) Patient Instructions/Instrucciones para el Paciente All smokers are encouraged to stop smoking. If you would like help, talk to your doctor or call The [place] Tobacco Quitline at 5-283-AHNNNOW (9-691-159- 3844). If you have thoughts about committing suicide or otherwise hurting yourself, please call 221 or call Crisis Line at . Take Charge of Your Health with Digital H2O Sign up today for [employer] for access to your health records 14/12. [email or web address] allows you to: Request an appointment Check your lab results Communicate with your providers and care team See provider notes from your visit View immunization records View current medication Sign up Today! Ask your healthcare provider or a [facility] associate for help, or email [email or web address] Family History Value Date Source Advance Directives Order Name Results Value Date Source
--- NOTE | 2016-09-04 09:43 | NUR ---
PROVIDER DR AL AT BEDSIDE
--- OUTSIDE RECORDS SUMMARY | 2016-09-04 09:45 | XMS REPORT | Continuity of Care Document ---
Author Author [facility] Organization [facility] Address Unknown Phone Unavailable Care Team Providers Care Principal Librarian Name Role Phone DYLON SOUSA MD Primary Care Physician [phone] Insurance Providers Payer Name Policy Number Subscriber Name Relationship [facility] Community Plan [id number] Raquel Killian 19 Self Problems Medical Problems Problem Onset Date Status Hand contusion Unknown Active Medications Medication Dose Route Sig Days/Qty Instructions Order Date Discontinued Date Status [[place]] 10/19/10 01/29/11 Discontinued [Seroquel] 10/19/10 01/29/11 Discontinued [...] F (96.8 - 99.1) Temperature (Calculated Celsius) 35.11148 degrees C (36.0 - 37.3) Pulse Rate [...] 19, 2010 7:02pm 130 U/L N 23-300 [place] Level October 19, 2010 7:02pm < 0.2 [...] Has specimen been collected/obtained? Y Urine Specific [place] November 17, 2011 8:30pm 1.025 - Has [...] Encounters Encounter Location Date/Time Departed Emergency Room [facility] 01/22/14 12:33pm Recent Diagnosis
[2016-09-04] MEDS ORDERED: IBUP-1724 PO (09:54)
--- NOTE | 2016-09-04 10:02 | NUR ---
UPDATE PATIENT REQUESTS MEDICATION FOR HER HEADACHE, DR AL NOTIFIED.
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
[2016-09-04 10:30] LABS: BASOPHILS % (AUTO) 0.4 % (0-2); EOSINOPHILS # (AUTO) 0.1 T/MM3 (0-0.5); EOSINOPHILS % (AUTO) 1.2 % (0-4); HCT - HEMATOCRIT 39.9 % (36-46); HGB - HEMOGLOBIN 13.4 GM/DL (12-16); IMMATURE GRANULOCYTE # (AUTO) 0.01 T/MM3 (0.00-0.03); IMMATURE GRANULOCYTE % (AUTO) 0.1 % (0.0-0.5); LYMPHOCYTES # (AUTO) 1.9 T/MM3 (1-4.8); LYMPHOCYTES % (AUTO) 23.1 % (23-45); MEAN CORPUSCULAR HGB 28.9 UUG (26-34); MEAN CORPUSCULAR HGB CONC(MCHC 33.6 GM/DL (31-37); MEAN CORPUSCULAR VOLUME 86.2 UM3 (80-100); MEAN PLATELET VOLUME 9.9 UM3 (9.4-12.4); MONOCYTES # (AUTO) 0.4 T/MM3 (0-0.8); MONOCYTES % (AUTO) 4.8 % (0-9.0); NEUTROPHILS #(AUTO)-ABSOLUTE 5.9 T/MM3 (1.8-7.7); NEUTROPHILS % (AUTO) 70.4 % (33-66); RED BLOOD COUNT 4.63 M/MM3 (4.00-5.20); WBC - WHITE BLOOD COUNT 8.3 T/MM3 (4.5-11.0)
[2016-09-04 10:40] LABS: ACETAMINOPHEN < 10 UG/ML (10-30); ANION GAP 12 MEQ/L (5-15); BUN/CREATININE RATIO 10 RATIO (6-26); CALCIUM 9.4 MG/DL (8.4-10.2); CHLORIDE 109 MEQ/L (98-107); CO2 - CARBON DIOXIDE 23 MEQ/L (22-30); CREATININE 0.9 MG/DL (0.7-1.2); ETHANOL <10 MG/DL (<10); GLOMERULAR FILTRATION RATE 76; GLUCOSE 96 MG/DL (65-110); POTASSIUM 3.9 MEQ/L (3.6-5); SALICYLATE < 1.0 MG/DL (2-20); SODIUM 144 MEQ/L (134-144)
[2016-09-04 10:43] LABS: BLOOD, URINE 2+ (NEGATIVE); COLOR,URINE YELLOW (YELLOW); LEUKOCYTE ESTERASE ,URINE TRACE (NEGATIVE); NITRITE,URINE NEGATIVE (NEGATIVE); UROBILINOGEN,URINE 0.2 EU/DL (NORMAL)
[2016-09-04 10:54] LABS: AMPHETAMINE SCREEN,URINE NEGATIVE; BACTERIA,URINE 2+ (NEGATIVE); BARBITURATE SCREEN,URINE NEGATIVE; BENZODIAZEPINES SCREEN,URINE NEGATIVE; CANNABINOID SCREEN,URINE POSITIVE; COCAINE SCREEN,URINE NEGATIVE; METHADONE SCREEN, URINE NEGATIVE; METHAMPHETAMINE SCREEN, URINE NEGATIVE; OPIATE SCREEN,URINE NEGATIVE; PHENCYCLIDINE SCREEN,URINE NEGATIVE; TRICYCLIC ANTIDEPRESSANT,URINE NEGATIVE
[2016-09-04] MEDS ORDERED: ACETAMINOPHEN 500 MG TABLET PO ONE (11:00)
--- NOTE | 2016-09-04 11:00 | NUR ---
UPDATE PATIENT SITTING UP IN BED, MOTHER AND SISTER AT BEDSIDE. PATIENT REQUESTS TO GO OUTSIDE TO SMOKE. PATIENT INFORMED THAT SHE IS TO STAY IN HER ROOM AND RN STRESSED IMPORTANCE OF SAFETY FOR PATIENT BEING THE REASON WHY SHE MUST STAY IN THE ROOM.
[2016-09-04 11:18] LABS: THYROID STIM HORMONE-TSH 2.52 MIU/L (0.47-4.68)
--- NOTE | 2016-09-04 11:53 | NUR ---
UPDATE PATIENT COMES TO NURSES STATION STATING, "WHEN IS [facility] COMING?" "IF THEY ARE GOING TO BE MORE THAN 10 MINUTES I'M GOING TO LEAVE" PATIENT ALSO REPORTS "IF THEY TRY TO PUT ME INPATIENT I WON'T DO IT"
--- NOTE | 2016-09-04 12:10 | NUR ---
[facility] AMISH STAFF LILLY FROM [facility] IS IN ROOM WITH PT AND PT'S MOTHER.
[2016-09-04 13:09] VITALS: BP 113/56; PULSE 65; RESP 20; O2SAT 98
== END 2016-09-04 13:09 | disposition home or self-care (01) ==
LOC: ED 09:16
DX: F33.1 Major depressive disorder, recurrent, moderate (principal)
CPT/HCPCS: 36415; 80048; 80306; 80307; 81001; 81025; 84443; 85025

== ENCOUNTER 2017-12-30 06:48 | Inpatient (IN) ==
--- OUTSIDE RECORDS SUMMARY | 2017-12-30 06:57 | External Medical Summary | Encounter Summary ---
:1990 Author Organization [facility] Address [address] [facility] [address] [place] [address] Care Team Providers Name Role Phone No Pcp, Na Primary Care Provider Unavailable Reason for Visit Reason Comments Routine Visit Encounter Details Date Type Department Care Team Description 10/06/2017 Routine [facility] Marleny Nieves, Encounter for Physicians - KATARINA NEVILLE supervision of other Ortho and Medical [address] [facility] normal in Pavilion Level 5B [place] 2027 third trimester [address] [place], [place] (Primary Dx) [place] [phone] Social History Tobacco Use Types Packs/Day Years Used Date Current Every Day Smoker Smokeless Tobacco: Never Used Alcohol Use Drinks/Week oz/Week Comments No Sex Assigned at Date Recorded Not on file as of this encounter Last Filed Vital Signs Vital Sign Reading Time Taken Blood Pressure 124/70 10/06/2017 11:44 AM CDT Pulse 81 10/06/2017 11:44 AM CDT Temperature - - Respiratory Rate - - Oxygen Saturation - - Inhaled Oxygen Concentration - - Weight 91.8 kg (202 lb 6.4 oz) 10/06/2017 11:44 AM CDT Height - - Body Mass Index 37.02 10/06/2017 11:44 AM CDT in this encounter Progress Notes Marleny Nieves MD - 10/06/2017 11:45 AM CDT27 yo @ 24 1/7 wga here for routine visit L=20, JOHN 01/25/18 A+, Ab-, [place] (outside records) Di/Di twin gestation - q4 week growth - desires H/o section Tobacco use in , decreasing down to 6 cig per day +FM. -LOF/VB/CTX. PTL precautions q4 weeks growth Moving to [facility] and will not be returning. Will be going to [facility] Patient encouraged to establish care within 4 weeks with new provider Marleny Nieves MD in this encounter Plan of Treatment Not on fileas of this encounter Visit Diagnoses Diagnosis Encounter for supervision of other normal in third trimester - Primary
--- OUTSIDE RECORDS SUMMARY | 2017-12-30 06:57 | External Medical Summary | Encounter Summary ---
:1990 Author Organization [facility] Address [address] [place] [address] Care Team Providers Name Role Phone No Pcp, Na Primary Care Provider Unavailable Reason for Visit Reason Comments Ultrasound Encounter Details Date Type Department Care Team Description 10/06/2017 Clinical Support [facility] 24 weeks gestation of Physicians - OBGYN (Primary Dx) Ortho and Medical Pavilion Level 5C [address] [place] [address] Social History Tobacco Use Types Packs/Day Years Used Date Current Every Day Smoker Smokeless Tobacco: Never Used Alcohol Use Drinks/Week oz/Week Comments No Sex Assigned at Date Recorded Not on file as of this encounter Progress Notes Lyn Rojas LPN - 10/06/2017 10:30 AM Denise Todd Killian presents for an ultrasound encounter. Past Medical, Surgical, Family & Social History; Medications & Allergies contained in the electronic record below were not reviewed today and may not be up-to-date. Please see A/S OBGYN report for all documentation related to this encounter. 10/08/2017 Lyn Rojas LPN in this encounter Plan of Treatment Not on fileas of this encounter Results ULTRASOUND [facility] ORDER (10/06/2017) Narrative Performed At Performing Organization Address City/State/Zipcode Phone Number [place] CLINIC in this encounter Visit Diagnoses Diagnosis 24 weeks gestation of - Primary state, incidental
--- OUTSIDE RECORDS SUMMARY | 2017-12-30 06:57 | External Medical Summary | Clinical Summary ---
:1990 Author Organization [facility] Address [address] [place] [address] Care Team Providers Name Role Phone No Pcp, Na Primary Care Provider Unavailable Source Comments Some departments are not documenting in the electronic medical record. If you do not see the information that you expected, contact Release of Information in the Health Information Management department at [phone] for further assistance in locating additional records.[facility] Allergies No Known Allergies Current Medications Prescription Sig. Disp. Refills Start Date End Date Status vitamins, Take 1 tablet by 90 tablet 3 08/25/2017 Active w/iron & folate 28 mg mouth daily. iron- 800 mcg tablet Encounters Date Type Specialty Care Team Description 10/06/2017 Routine Obstetrics & Kathy, Encounter for Gynecology MD Marleny supervision of other normal in third trimester (Primary Dx) 10/06/2017 Clinical Support High Risk 24 weeks gestation of (Primary Dx) 10/01/2017 Telephone Obstetrics & Kathy, Appointment Gynecology MD Marleny 09/30/2017 Telephone Obstetrics & Kathy, Appointment Question Gynecology MD Marleny from Last 3 Months Family History Medical History Relation Name Comments Diabetes Father Diabetes Sister Cancer-Breast Neg Hx Cancer-Colon Neg Hx Cancer-Ovarian Neg Hx Cancer-Uterine Neg Hx Cervical Cancer Neg Hx Heart Disease Neg Hx High Cholesterol Neg Hx Hypertension Neg Hx Relation Name Status Comments Father Sister Social History Tobacco Use Types Packs/Day Years Used Date Current Every Day Smoker Smokeless Tobacco: Never Used Tobacco Cessation: Ready to Quit: No; Counseling Given: Yes Alcohol Use Drinks/Week oz/Week Comments No Currently Estimated Date of Delivery Comments Yes 01/25/2018 Based on last menstrual period of 04/20/2017 Sex Assigned at Date Recorded Not on file Last Filed Vital Signs Vital Sign Reading Time Taken Blood Pressure 124/70 10/06/2017 11:44 AM CDT Pulse 81 10/06/2017 11:44 AM CDT Temperature - - Respiratory Rate - - Oxygen Saturation - - Inhaled Oxygen Concentration - - Weight 91.8 kg (202 lb 6.4 oz) 10/06/2017 11:44 AM CDT Height 157.5 cm (5' 2") 08/25/2017 1:10 PM CDT Body Mass Index 37.02 10/06/2017 11:44 AM CDT Plan of Treatment Health Maintenance Due Date Last Done Comments PHYSICAL (COMPREHENSIVE) EXAM 1998 HPV VACCINES (1 of 3 - Female 3-dose 2002 series) PERTUSSIS VACCINE 2002 HIV SCREENING 2006 TETANUS VACCINE 01/11/2008 CERVICAL CANCER SCREENING 01/11/2012 INFLUENZA VACCINE 02/21/2018 03/18/2010, 04/24/2009 Results ULTRASOUND [facility] ORDER (10/06/2017) Narrative Performed At Performing Organization Address City/State/Zipcode Phone Number IN CLINIC from Last 3 Months
--- OUTSIDE RECORDS SUMMARY | 2017-12-30 06:57 | External Medical Summary | Encounter Summary ---
:1990 Author Organization [facility] Address [address] [place] [address] Care Team Providers Name Role Phone No Pcp, Na Primary Care Provider Unavailable Reason for Visit Reason Comments Appointment Encounter Details Date Type Department Care Team Description 10/01/2017 Telephone [facility] Marleny Chavez MD Appointment Physicians - OBGYN [address] Ortho and Medical Pavilion [address] [place] [address] [address] [facility] [phone] [place] [address] [phone] Social History Tobacco Use Types Packs/Day Years Used Date Current Every Day Smoker Smokeless Tobacco: Never Used Alcohol Use Drinks/Week oz/Week Comments No Sex Assigned at Date Recorded Not on file as of this encounter Miscellaneous Notes Telephone Encounter - Lyn Rojas LPN - 10/01/2017 10:58 AM CDTPt case sealer Heike calling to confirm appointments are combined. This nurse called Raquel to obtain verbal consent to speak with Heike. Pt states it is okay to speak to Heike about appointments only. This nurse answered questions about appointments only. Heike will call to set up transportation for pt.in this encounter Plan of Treatment Not on fileas of this encounter Visit Diagnoses Not on filein this encounter
--- OUTSIDE RECORDS SUMMARY | 2017-12-30 06:57 | External Medical Summary | Encounter Summary ---
:1990 Author Organization [facility] Address [address] [place] [address] Care Team Providers Name Role Phone No Pcp, Na Primary Care Provider Unavailable Reason for Visit Reason Comments Appointment Question Encounter Details Date Type Department Care Team Description 09/30/2017 Telephone [facility] Marleny Chavez MD Appointment Question Physicians - OBGYN [address] Ortho and Medical [place] [address] [place], [place] [address] [address] [place], [place] [phone] Social History Tobacco Use Types Packs/Day Years Used Date Current Every Day Smoker Smokeless Tobacco: Never Used Alcohol Use Drinks/Week oz/Week Comments No Sex Assigned at Date Recorded Not on file as of this encounter Miscellaneous Notes Telephone Encounter - Lyn Rojas LPN - 09/30/2017 2:28 PM CDTPt returned call. Pt is now scheduled on the same day for both appointments 5.16.18. Sono:10:30 Pt will come over after sono appointment.Telephone Encounter - Lyn Rojas LPN - 09/30/2017 8:57 AM CDTPt pet care associate left V/M stating she was calling for Raquel to see if the 2 appointments she has scheduled for October 04 and can be combined into one appointment. THere is no prior auth signed to be able to speak to case preparer and liner. This nurse called pt. no answer LMTCB. Pt is scheduled for RPV and a SONO appointment. in this encounter Plan of Treatment Not on fileas of this encounter Visit Diagnoses Not on filein this encounter
[2017-12-30] MEDS ORDERED: FAMOTIDINE PB 20 MG/50 ML BAG IV ONE (07:28)
[2017-12-30] MEDS ORDERED: CITRIC ACID/SODIUM CITRATE 30ml PO ONE (07:28)
[2017-12-30] MEDS ORDERED: CEFAZOLIN PREMIX (MC ONLY) 2 GM/50 ML BAG IV ONE (07:28)
[2017-12-30] MEDS: LR 1,000 ML IV SCH ×7 (08:00→19:06)
--- NOTE | 2017-12-30 09:22 | Anesthesia Preoperative Report ---
Anesthesia Epidural/Spinal Rec - Date and Time Date: 12/30/17 Procedure: (repeat c/s) Plan: Spinal - Vital Signs Vital Signs: Temperature 98.1 F 12/30/17 08:38 Pulse Rate 71 12/30/17 08:38 Respiratory Rate 17 12/30/17 08:38 Blood Pressure 131/80 12/30/17 08:38 Pulse Oximetry 98 12/30/17 08:38 /Para: P:1 - Medictaions & Allergies Inpatient Medications: Current Medications Lactated Ringer's (Lactated Ringers) 1,000 mls @ 150 mls/hr IV .Q6H40M [facility] Last Admin: 12/30/17 08:00 Dose: 150 mls/hr Lactated Ringer's (Lactated Ringers) 1,000 mls @ 999 mls/hr IV .Q1H1M [facility] Allergies/Adverse Reactions: Allergies Allergy/AdvReac Type Severity Reaction Status Date / Time paroxetine [From Paxil] Allergy Intermediate Swelling Verified 11/20/17 07:17 of Lip/Tongue/Throat - Home Medications Home Medications: Home Medications Medication Instructions Recorded Confirmed Type Vits #93/Iron Fum/FA 1 tab PO DAILY 06/04/17 11/20/17 History [ Formula Tablet] Guaifenesin Oral Liq [Robitussin] 1 dose PO Q4H PRN 10/27/17 11/20/17 History - Medical History Gastrointestional: Reports: Gastroesophageal Reflux Disease, Morbid Obesity Neuro/Musculoskeletal: Reports: Depression, Other (moderate mental retardation, PTSD, Bipolar) Renal/Endocrine: Reports: Thyroid Disease (low thyroid) Other History: Reports: Now ([facility] 01/24/18) - Surgical History Reproductive Surgery/Treatment: Reports: Section DENIES: Hysterectomy, Tubal Ligation Anesthesia Reactions: None Hx Family Anesthesia Reaction: No History of Motion Sickness: No - Social History Smoking Status: Heavy tobacco smoker Second Hand Exposure: Yes Substance Use Type: does not use Alcohol Intake Frequency: does not drink Hx Chewing Tobacco Use: No - Pertinent Findings Lab Data: CBC and BMP 12/30/17 07:47 - Physical Exam Respiratory Exam: lungs clear, bilateral breath sounds equal Cardiovascular Exam: regular rate and rhythm - Airway Assessment Mallampati Score: II TMD: 3 Fingerbreadths Neck Extension: fair - ASA ASA Score: 3 - Discussion Discussion: Discussed risks/options/alternatives of anesthesia and questions answered. Patient consents. Nursing pain assessment noted. Anesthesia Discussion: spouse, family member Attestation Statement: Prior to the delivery of any anesthetic medication, I examined the patient, developed the plan, obtained the patient's consent and discussed the risk and benefits of the procedure with the patient/guardian.
[2017-12-30] MEDS ORDERED: NALOXONE 2 MG/2 ML INJECTION PFS IVP PRN (09:24)
[2017-12-30] MEDS ORDERED: ONDANSETRON 4 MG/2 ML INJECTION IVP PRN (09:24)
[2017-12-30] MEDS ORDERED: NALBUPHINE 10 MG/ML INJECTION IVP PRN (09:24)
[2017-12-30] MEDS ORDERED: EPHEDRINE 50mg/ml INJECTION ONE (09:48)
[2017-12-30] MEDS ORDERED: LIDOCAINE 2% (100mg/5mL) 5ml PF SDV ONE (09:48)
[2017-12-30] MEDS ORDERED: BUPIVACAINE 0.75%/DEXTROSE 8.5% SPINAL 2 ML AMPULE IJ ONE (09:48)
[2017-12-30] MEDS ORDERED: FentaNYL 100 MCG/2 ML INJECTION ONE (09:48)
[2017-12-30] MEDS ORDERED: SALINE FLUSH 10ml SYRINGE ONE (10:12)
[2017-12-30] MEDS ORDERED: PHENYLEPHRINE INJ 10 MG/ML VIAL IV ONE (10:12)
[2017-12-30] MEDS ORDERED: ONDANSETRON 4 MG/2 ML INJECTION ONE (10:19)
[2017-12-30] MEDS ORDERED: OXYTOCIN BOLUS BAG 30 UNIT/500 ML ML IV SCH (10:30)
[2017-12-30] MEDS ORDERED: SIMETHICONE 80 MG CHEWABLE TABLET PO PRN (11:05)
[2017-12-30] MEDS ORDERED: CALCIUM CARBONATE Chewable 500mg TABLET PO PRN (11:05)
[2017-12-30] MEDS ORDERED: HYDROCORTISONE 2.5% CREAM 30gm RECTALLY PRN (11:05)
[2017-12-30] MEDS ORDERED: ACETAMINOPHEN 500 MG TABLET PO PRN (11:05)
[2017-12-30] MEDS ORDERED: HYDROCODONE/APAP 5mg/325mg TABLET PO PRN (11:05)
[2017-12-30] MEDS ORDERED: DiphenhydrAMINE 25 MG CAPSULE PO PRN (11:05)
[2017-12-30] MEDS ORDERED: HYDROMORPHONE PCA 30mg/30ml VIAL IV PRN (11:06)
[2017-12-30] MEDS ORDERED: NALOXONE 0.4 MG/ML INJECTION IVP PRN (11:06)
[2017-12-30] MEDS ORDERED: OXYTOCIN DRIP 30 UNIT/500 ML ML IV SCH (11:15)
[2017-12-30] MEDS: D5LR 1,000 ML IV SCH (11:18)
[2017-12-30] MEDS: IBUPROFEN 800 MG TABLET PO PRN ×2 (12:32→22:03)
--- NOTE | 2017-12-30 13:58 | Operative Note ---
DATE OF OPERATION 12/30/2017 PREOPERATIVE DIAGNOSIS 1. 27-year-old 2, para 1 at 36 weeks 3 days gestational age. 2. Di/Di twins. 3. IUGR. 4. Previous . 5. Vertex transverse presentation. POSTOPERATIVE DIAGNOSIS 1. 27-year-old 2, para 1 at 36 weeks 3 days gestational age. 2. Di/Di twins. 3. IUGR. 4. Previous . 5. Vertex transverse presentation. PROCEDURE Repeat low transverse section. SURGEON Haether Storm MD [employer] Coy Holland, [employer] ANESTHESIA Spinal by Manuel Brumfield CRNA COMPLICATIONS None EBL 900 mL FINDINGS Baby A is a viable female infant, clear fluids, vertex, Apgars 8/9, weight 2454 grams, name "Hattie". Baby B is also a viable female , clear fluids, vertex at delivery, 8/9 Apgars, weight 2718 grams, name "Kendal". Normal-appearing uterus, tubes and ovaries except for some endometrial implants at the fimbria of the left fallopian tube. DESCRIPTION OF PROCEDURE The patient was taken to the operating room where anesthesia was obtained. She was placed in the dorsal supine position with a leftward tilt and a Clifton catheter was placed. She was prepared and draped in the normal sterile fashion. A Pfannenstiel skin incision was made through her previous incision and carried down to the fascia. The fascia was incised in the midline and extended laterally with the Gonzales scissors. The fascia was elevated and the underlying rectus muscles were dissected off. There were omental adhesions in this layer. The rectus muscles were in the midline and the peritoneum was entered bluntly. This was extended superiorly and inferiorly with good visualization of the bladder. The bladder blade was inserted. The bladder adhesions were taken down sharply with the Metzenbaum scissors and the bladder blade was reinserted. The lower uterine segment was incised in a transverse fashion layer by layer with the scalpel and bluntly extended. The first membranes were ruptured. The infant's head was delivered atraumatically. The nose and mouth were suctioned. The cord was clamped and cut. The infant was handed to Dr. Thornton who was asked to attend the delivery due to the prematurity. Baby B's membranes were also ruptured. B was vertex at this point. Again, the head was delivered atraumatically. The nose and mouth were suctioned. The cord was clamped and cut. This infant was also handed to Dr. Thornton. The placentas delivered together. The uterus was exteriorized and cleared of all clots and debris. There was a small uterine extension on the left. The extension and the incision were closed with running locked 0 Monocryl. Hemostasis was obtained with the cautery. Good hemostasis was noted. The uterus was returned to the abdomen. The incision was inspected one final time and still noted to be hemostatic. The gutters were cleared of all clots and debris. The peritoneum was closed with running 2-0 Vicryl. Hemostasis was obtained in the rectus muscles with the cautery. The fascia was closed with running 0 Vicryl. Hemostasis was obtained in the subcutaneous tissue with the cautery. Rafael's fascia was closed with running 2-0 chromic. The skin was closed with 4-0 Vicryl in a subcuticular manner. The Dermabond Prineo was applied to the incision. Mom and babies tolerated the delivery well. She was taken to the recovery room in good condition. Sponge, sharp and instrument counts were correct. RYD
[2017-12-30 14:00] VITALS: BMI 38.3
[2017-12-30] MEDS: SIMETHICONE 80 MG CHEWABLE TABLET PO SCH ×3 (17:13→21:06)
[2017-12-30] MEDS ORDERED: Oxycodone *IR* 5 MG TABLET PO PRN (17:40)
[2017-12-30] MEDS: HYDROCODONE/APAP 7.5 MG/325 MG TABLET PO PRN ×2 (19:43→23:29)
[2017-12-31] MEDS: D5LR 1,000 ML IV SCH (00:02)
[2017-12-31] MEDS: HYDROCODONE/APAP 7.5 MG/325 MG TABLET PO PRN ×3 (03:37→22:25)
--- NOTE | 2017-12-31 08:16 | OB/GYN Progress Note ---
OB-PP Progress Note - General PPD1 Maternal Group B Strep: Positive Maternal Rh: positive Maternal Rubella Status: Immune - Subjective Date: 12/31/17 Lochia: Minimal Pain: controlled Voiding: voiding - Objective Vital Signs: Last Vital Signs Temp 97.4 F 12/31/17 06:30 Pulse 62 12/31/17 06:30 Resp 18 12/31/17 06:30 BP 95/59 12/31/17 06:30 Pulse Ox 96 12/31/17 06:30 Urine Output: good General: alert and oriented Abdomen: fundus firm, non-tender Incision: clean, no erythema, dry Extremities: non-tender Laboratory: Laboratory Results - last 24 hr 12/30/17 12/30/17 12/30/17 07:47 07:47 16:21 WBC 17.2 H 12.9 H RBC 4.29 3.66 L Hgb 13.3 11.2 L D Hct 38.8 33.3 L D MCV 90.4 91.0 MCH 31.0 30.6 MCHC 34.3 33.6 RDW Std Deviation 42.5 42.4 Plt Count 226 182 MPV 10.2 10.5 Immature Gran % (Auto) Not performed Neut % (Auto) Not performed Lymph % (Auto) Not performed Saunders % (Auto) Not performed Eos % (Auto) Not performed Baso % (Auto) Not performed Neut # (Auto) Not performed Lymph # (Auto) Not performed Saunders # (Auto) Not performed Eos # (Auto) Not performed Baso # (Auto) Not performed Abs Immat Gran (auto) Not performed Neutrophils % (Manual) 74.0 H Band Neutrophils % 1.0 Lymphocytes % (Manual) 22.0 L Monocytes % (Manual) 3.0 Neutrophils # (Manual) 12.7 H Band Neutrophils # 0.2 Lymphocytes # (Manual) 3.8 Monocytes # (Manual) 0.5 RBC Morph Comment Normal Blood Type A Positive Antibody Screen Negative - Assessment Assessment: Repeat C/S - Plan Plan: routine care
[2017-12-31] MEDS: DOCUSATE CALCIUM 240 MG CAPSULE PO SCH (08:28)
[2017-12-31] MEDS: LEVOTHYROXINE 25 MCG TABLET PO SCH (08:52)
[2017-12-31] MEDS: IBUPROFEN 800 MG TABLET PO PRN ×2 (11:06→21:31)
[2017-12-31] MEDS: SIMETHICONE 80 MG CHEWABLE TABLET PO SCH ×3 (11:06→21:32)
[2017-12-31] MEDS: ESCITALOPRAM 10 MG TABLET PO SCH (11:07)
[2018-01-01] MEDS: SIMETHICONE 80 MG CHEWABLE TABLET PO SCH (00:34)
[2018-01-01 01:29] VITALS: O2SAT 97
[2018-01-01] MEDS ORDERED: LEVOTHYROXINE 25 MCG TABLET PO SCH (06:30)
[2018-01-01] MEDS: IBUPROFEN 800 MG TABLET PO PRN (07:59)
[2018-01-01] MEDS: DOCUSATE CALCIUM 240 MG CAPSULE PO SCH (08:04)
[2018-01-01] MEDS: ESCITALOPRAM 10 MG TABLET PO SCH (08:05)
[2018-01-01] MEDS: LEVOTHYROXINE 25 MCG TABLET PO SCH (08:05)
[2018-01-01 09:09] VITALS: BP 124/68; PULSE 68; RESP 18; TEMP 97.7
== END 2018-01-01 12:30 | disposition home or self-care (01) | DRG 765 ==
LOC: MC 06:48
PROVIDERS: ADMIT Obstetrics & Gynecology; ATTEND Obstetrics & Gynecology